=== PATIENT | male | born 1955 | race Caucasian/White ===

== ENCOUNTER 2017-10-24 02:11 | Inpatient (IN) | payer MEDICAID ==
[2017-10-18 14:16] LABS: PLATELET COUNT, AUTOMATED 361 K/uL (150-450)
--- NOTE | 2017-10-18 15:00 | EKG ---
[place] [facility] [place] NAME: ROSEMARY MONTE : [id number] MR: [id number] V: [id number] EXAM DATE: ORDERING PHYSICIAN: АНДРЕЙ BRASWELL TECHNOLOGIST: JOSUE Ayala Reason : PREOP Blood Pressure : / mmHG Vent. Rate : 079 BPM Atrial Rate : 079 BPM P-R Int : 142 ms QRS Dur : 082 ms QT Int : 372 ms P-R-T Axes : 079 066 073 degrees QTc Int : 426 ms Normal sinus rhythm Normal ECG When compared with ECG of 02-FEB-2017 07:42, Relatively unchanged Confirmed by SANJAY HERNANDEZ ([id number]) on 10/19/2017 10:10:47 PM Referred By: FRENCH Confirmed By:SANJAY HERNANDEZ
--- NOTE | 2017-10-18 15:10 | RADIOLOGY IMAGING REPORT ---
FACILITY: [facility] PATIENT NAME: Zachery Smith : 1955 MR: [id number] V: [id number] EXAM DATE: ORDERING PHYSICIAN: АНДРЕЙ BRASWELL TECHNOLOGIST: Location: [facility] Patient: Zachery Smith : 1955 Visit/Account:[id number] Date of Sevice: 10/18/2017 CHEST PA AND LAT Indication: Asthma Comparison: Chest x-ray 02/02/2017 Findings: Lungs: Linear scar is seen left lung base. Lungs are otherwise clear. Mediastinum/pulmonary vasculature: Heart size and pulmonary vasculature are normal. Bones/soft tissues: Old fractures are seen posterior left sixth, seventh, and eighth rib. IMPRESSION: 1. Stable scar left lung base. 2. Otherwise clear lungs. Report Dictated By: Chito Ruiz at 10/18/2017 3:01 PM Report E-Signed By: Chito Ruiz at 10/18/2017 3:07 PM WSN:[email or web address]
--- NOTE | 2017-10-21 04:03 | LEVENE H&P ---
DATE OF ADMISSION: October 24, 2017 IDENTIFICATION/CHIEF COMPLAINT The patient is a 61-year-old gentleman with a chief complaint of left hip pain. 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 He has had successful right hip replacement. Left hip replacement is indicated at this time to relieve pain and improve function. PAST MEDICAL HISTORY Notable for history of alcohol abuse, reactive airway disease. PAST SURGICAL HISTORY Notable for the contralateral hip replacement as well as back operation, removal of kidney stones, bladder operation. ALLERGIES CODEINE, which cause itching and GI upset, PENICILLIN, which had a severe reaction as a child, and ASPIRIN, which causes GI upset but no drug allergy. CURRENT MEDICATIONS 1. Oxycodone. 2. Gabapentin 300 t.i.d. 3. Xanax 1 mg p.o. t.i.d. 4. Pantoprazole 40 mg b.i.d. p.o. 5. Losartan 50 mg p.o. daily. 6. Flexeril 10 mg p.o. t.i.d. 7. Albuterol nebulizer p.r.n. 8. Spiriva inhaler once a day. 9. He uses nighttime oxygen. FAMILY HISTORY Notable for multiple relatives with cancer. SOCIAL HISTORY Notable for smoking a pack a day for 50+ years, currently down to half a pack a day. Drinks alcohol about three times a day, but denies abuse or withdrawal symptoms. REVIEW OF SYSTEMS Noncontributory. PHYSICAL EXAMINATION GENERAL: This is a well-developed, well-nourished male who appears stated age. HEENT: Normocephalic, atraumatic. NECK: Supple. LUNGS: Clear. HEART: Regular. ABDOMEN: Soft. ORTHOPEDIC EXAMINATION: The left hip is exquisitely painful. It limits rotation. He lacks about 10 degrees internal rotation versus contralateral. He is short about a centimeter to a centimeter and a half. Skin is intact. Neurovascular function is intact. Calves nontender. RADIOGRAPHIC DATA Radiographs demonstrate endstage AVN with collapse and arthritis. ASSESSMENT Left hip end-stage degenerative joint disease secondary to avascular necrosis, refractory to conservative care. PLAN Per patient request, will proceed with total hip arthroplasty. The nature of the procedure, the risks, benefits, the anticipated rehab course were reviewed. Risks include but are not limited to , major medical or anesthetic complication, infection, neurovascular injury, blood transfusion, stiffness, scarring, fracture, tendon rupture, instability, leg length discrepancy, implant loosening, migration or failure, need for additional surgery and other unforeseen. He understands and wishes to proceed. A signed permit is placed in the chart. No guarantees are given or implied. MARIIA
[2017-10-23 15:59] LABS: INR 1.03
[2017-10-24] VITALS (17 sets, daily range): BP systolic 95–132; BP diastolic 58–87; BMI 25.8
[~2017-10-24] VITALS: Ht 180.3 cm; Wt 83.9 kg
[~2017-10-24 02:11] MED LIST: ALB18R INH; ALBL INH; ALBU2.5V36 INH; ALPR-434 PO; AMLO-99 PO; ASPI-816 PO; ATOR20TA22 PO; AZIT-1 PO; BAC PO; BUDE10.2 INH; BUDE10.25 IH; CELE-1 PO; CIP500 PO; CLOP75TA43 PO; CYC10 PO; CYCL-343; CYCL10TA29 PO; DIA5 PO; DOC100 PO; DOCU-416 PO; FAM20 PO; FAMO20TA28 PO; FLUT1DIS28 IH; GABA-549 PO; HYDR-4309 PO; IBUP800T37 PO; LEVO-85 PO; LEVO750T44 PO; LISI-362 PO; LOR5/325 PO; LOSA50TA72 PO; MEP50 PO; METH1TAB65 PO; METH4TAB66 PO; METO25TA23; METO25TA23 PO; MORP-1 PO; MULT1CAP59 PO; OXYC-823 PO; OXYC-865 PO; OXYC-869 PO; OXYC-870 PO; OXYC10TA67; OXYC10TA67 PO; OXYGEN; OXYGENHOME INH; PANT40TA65; PANT40TA65 PO; PHEN200T32 PO; PHENA200 PO; PRED-1 PO; PRED20TA6 PO; TAMS0.4C25 PO; TAMS0.4C70 PO; TIO18R INH; VARE1TAB4 PO
[2017-10-24] MEDS ORDERED: FAMOTIDINE 20 MG TAB PO ONE (06:45)
[2017-10-24] MEDS ORDERED: LIDOCAINE/SOD BICARB 8.4% SYR ID ONE (07:45)
[2017-10-24] MEDS ORDERED: MIDAZOLAM 2 MG/2 ML VIAL IVP PRN (07:45)
[2017-10-24] MEDS ORDERED: NORMOSOL R SOLN(*) 1000 ML BAG 1,000 ML IV PRN (07:45)
[2017-10-24] MEDS ORDERED: TRANEXAMIC AC 1000 MG/10ML SDV 1,000 MG in DEXTROSE 5% 50 ML BAG 50 ML IV ONE (07:45)
[2017-10-24] MEDS ORDERED: cloNIDine EPIDUR INJ 100MCG/ML 40 MCG, ROPIVACAINE 0.5% 20 ML VIAL 25 ML, EPINEPHrine H... INJ ONE (07:45)
[2017-10-24] MEDS ORDERED: CLINDAMYCIN(*) 900 MG/NS 50 ML 50 ML IVPB ONE (07:45)
[2017-10-24] MEDS ORDERED: MORPHINE PF 5 MG/10 ML AMP ONE (08:22)
[2017-10-24] MEDS ORDERED: fentaNYL CITR 100 MCG/2 ML AMP ONE (08:23)
[2017-10-24] MEDS ORDERED: PROPOFOL EMUL(*) 10MG/ML 20 ML 20 ML ONE (08:24)
[2017-10-24] MEDS ORDERED: LIDOCAINE 2% IV 100 MG/5ML SYR ONE (08:24)
[2017-10-24] MEDS ORDERED: DEXAMETHASONE SOD 4 MG/ML VIAL ONE (08:56)
[2017-10-24] MEDS ORDERED: ONDANSETRON 4 MG/2 ML VIAL ONE (08:57)
[2017-10-24] MEDS ORDERED: MAGNESIUM HYDROXIDE* 30ML UDCP PO PRN (11:05)
[2017-10-24] MEDS ORDERED: ZOLPIDEM TARTRATE 5 MG TAB PO PRN (11:05)
[2017-10-24] MEDS ORDERED: diphenhydrAMINE 25 MG CAP PO PRN (11:05)
[2017-10-24] MEDS ORDERED: BENZOCAINE/MENTHOL 1 EACH LOZG PO PRN (11:05)
[2017-10-24] MEDS ORDERED: ACETAMINOPHEN 325 MG TAB PO PRN (11:05)
[2017-10-24] MEDS ORDERED: DIAZEPAM 5 MG TAB PO PRN (11:05)
[2017-10-24] MEDS ORDERED: FLUSH 10 ML SYR IVP PRN (11:05)
[2017-10-24] MEDS ORDERED: BISACODYL 10 MG SUPP PR PRN (11:05)
[2017-10-24] MEDS ORDERED: PROMETHAZINE 25 MG/ML 1 ML AMP IVP PRN (11:05)
[2017-10-24] MEDS ORDERED: diphenhydrAMINE 50 MG/ML VIAL IVP PRN (11:05)
[2017-10-24] MEDS ORDERED: SCOPOLAMINE 1.5 MG PATCH TD PRN (11:10)
[2017-10-24] MEDS ORDERED: NALBUPHINE HCL 10 MG/ML AMP IVP PRN (11:10)
[2017-10-24] MEDS ORDERED: ONDANSETRON 4 MG/2 ML VIAL IVP PRN (11:10)
[2017-10-24] MEDS ORDERED: LIDOCAINE/SOD BICARB 8.4% SYR SC ONE (11:40)
[2017-10-24] MEDS: APAP/HYDROCODONE 325/7.5 TAB PO PRN ×2 (12:43→19:55)
--- NOTE | 2017-10-24 14:30 | RADIOLOGY IMAGING REPORT ---
FACILITY: [facility] [place] PATIENT NAME: Zachery Smith : 1955 MR: [id number] V: [id number] EXAM DATE: ORDERING PHYSICIAN: АНДРЕЙ BRASWELL TECHNOLOGIST: [place] [facility] [place]y [place] : 1955 Visit/Account:[id number] Date of Sevice: 10/24/2017 Exam type: PELVIS History: POST OP PLACEMENT, left total hip arthroplasty Comparison: March 28, 2017. Findings: There is a right hip arthroplasty that was present on the prior study. There is a new left hip arthr oplasty that appears in good anatomic alignment on this AP view. Soft tissue gas and skin milad pr oject adjacent to this postoperative hip IMPRESSION: 1. As above Report Dictated By: Cesia Sidhu MD at 10/24/2017 2:24 PM Report E-Signed By: Cesia Sidhu MD at 10/24/2017 2:25 PM WSN:[email or web address]
--- NOTE | 2017-10-24 15:34 | LEVENE THA ---
EVENT DATE: October 24, 2017 SURGEON: Austin Silveira MD ANESTHESIOLOGIST: Pawan Freeman MD ANESTHESIA: General plus spinal SPECIAL SERVICE REPRESENTATIVE: JOIE Lisa PREOPERATIVE DIAGNOSIS Left hip avascular necrosis, secondary degenerative joint disease. POSTOPERATIVE DIAGNOSIS Left hip avascular necrosis, secondary degenerative joint disease. PROCEDURE PERFORMED Left total hip arthroplasty. ESTIMATED BLOOD LOSS 200 mL. DRAINS None. SPECIMENS None. COMPLICATIONS No apparent. IMPLANTS Angel system with a Secur-Fit max 132 size 12 stem, a Trident PSL HS cluster acetabular shell size 54, a Trident X3 0 degree eccentric liner to accommodate 36 mm head and a Biolox Delta ceramic C taper femoral head, 36 mm +5 neck length. INDICATIONS The patient has had bilateral hip AVN and DJD. His other hip has been replaced successfully. He has persistent pain and desires to have his left hip fixed. DESCRIPTION OF PROCEDURE The patient was taken to the operating room and placed supine on the operating table. General anesthesia was induced after spinal block was administered by the anesthesiologist. Antibiotics and TXA were administered IV. The patient was positioned in the right lateral decubitus position on a well-padded hawkins bag , his pelvis secured in a vertical position. All bony prominences and superficial nerves were well padded. The left hip girdle and lower extremity were prepped and draped in the usual sterile fashion for hip arthroplasty. small incision, posterolateral approach was made, carried down through the skin and subcu to the deep fascia. Fascia was incised over the tip of the trochanter , extended distally in line with the femur and proximally in line with the gloria fibers. The maximum fibers were split bluntly. Trochanteric bursa was excised. The interval between the abductor and external rotator was identified , abductor mechanism protected with a blunt Hohmann. An L capsulotomy/ tenotomy was performed, releasing the external rotators and the capsule off the back of the femur, starting with the horizontal limb just above the pyriformis. Capsule and external rotators were tagged for lateral anatomic reattachment. The femoral head was dislocated. End-stage arthritic change was noted. A 1.5 cm neck cut was made, consistent with preoperative templating. Femoral head was extracted. Femur was translocated anteriorly, periacetabular retractor placed with the tips down on bone. The labrum and pulvinar are excised. medialization of the true medial wall of the acetabulum was performed with a 44 mm reamer. This was expanded in 2 mm increments up to 54, where good rim contact was obtained. A 55 was used to open the throat of the acetabulum. The 54 had nice line to line fit on trialing. The actual shell was then impacted in approximately 40 degrees of lateral opening and 15 degrees of anteversion using the transverse acetabular ligament, internal bony landmarks and extracorporeal guide to guide socket placement. Rock solid fixation was achieved. No adjuvant fixation was felt to be necessary. The actual liner was inserted. The offset liner was used to match contralateral side. Attention was turned to femoral preparation. Superior neck was resected with a cookie- cutter. A Fermín awl finds the canal. Tapered reaming was performed p to 12 , where good endosteal contact was obtained. Broaching started at 10 and worked up to 12. Good fit and fill are obtained with the size 12 broach, which was stable. Trial reductions were performed, brought this good sikh of limb lengths. Stability was achievable with this stem. Broach was extracted. Surfaces were copiously lavaged. The actual stem was impacted into position, seats at the same height. The +5 neck length was selected for optimal sikh of soft tissue tension and stability and limb length. The Valderrama taper was lavaged and dried, and the actual Biolox head was impacted onto the Valderrama taper. Joint was reduced. Surfaces were copiously lavaged. Pain cocktail was infiltrated throughout the wound. A small drill bit was used to placed 2 drill holes posteriorly in the trochanter to anatomically reattach the external rotators in the posterior capsule. Deep fascia was closed with #2 Ethibond distally, #2 Vicryl proximally. Subcu was lavaged. Hemostasis was assured. Dermis was closed with 3-0 Vicryl, skin with surgical milad. Xeroform was applied followed by a sterile dressing and compression wrap. The patient was rolled supine and an abduction pillow was placed. He was awakened from anesthesia and taken to recovery room in stable condition, having tolerated the procedure well. The plan is for a standard [facility] rehab protocol. [facility] HOSPITALDebby
[2017-10-24] MEDS: NORMOSOL R SOLN(*) 1000 ML BAG 1,000 ML IV PRN (16:16)
[2017-10-24] MEDS: CLINDAMYCIN(*) 900 MG/NS 50 ML 50 ML IVPB SCH (16:18)
[2017-10-24] MEDS: CELECOXIB 200 MG CAP PO SCH (16:18)
[2017-10-24] MEDS: ASPIRIN 81 MG CHEW CHEW SCH (16:18)
[2017-10-24] MEDS ORDERED: ALBUTEROL 2.5 MG/3 ML NEB NEB PRN (23:15)
[2017-10-24] MEDS ORDERED: ALPRAZolam 1 MG TAB PO PRN (23:15)
--- NOTE | 2017-10-24 23:25 | Hospitalist Progress Note ---
Subjective Progress Notes Subjective No cp/sob. No concerns from staff. 150cc of EBL. 1600cc of crystalloid, TXA, ephedrine and dexamethasone given intra-op. Physical Exam Vital Signs Date Time Temp Pulse Resp B/P (MAP) Pulse Ox O2 Delivery O2 Flow Rate FiO2 10/24/17 20:02 100 Nasal Cannula 2.0 10/24/17 19:35 97.5 16 10/24/17 17:04 77 110/74 (86) Intake and Output 10/25/17 07:00 Intake Total 2620 ml Output Total 750 ml Balance 1870 ml Intake Oral 670 ml IV Total 1950 ml Output Urine Total 600 ml Estimated Blood Loss 150 ml General Appearance: Alert, Awake, No Acute Distress Cardiovascular: Regular Rate and Rhythm Respiratory: Clear to Auscultation Extremities: No Edema Assessment and Plan Problems: (1) Status post hip replacement Status: Acute Assessment & Plan: No CV/pulmonary issues. The patient denies any h/o DVT/PE. The patient to be on ASA 81mg a twice for blood clot prevention for 30 days after surgery, per Dr. Silveira's orders. The patient get itchy with full dose ASA and use 81mg for his previous hip surgery blood clot prevention. (2) Anxiety, generalized Status: Chronic Assessment & Plan: Continue Xanax prn. (3) GERD (gastroesophageal reflux disease) Status: Chronic Assessment & Plan: Continue Protonix. (4) Chronic pain Status: Chronic Assessment & Plan: He is on oxycodone chronically. Will defer to Dr. Silveira about pain management post-op. Continue prn Flexeril. (5) HTN (hypertension) Status: Chronic Assessment & Plan: Continue Toprol and Losartan with parameters. BMP daily. (6) COPD (chronic obstructive pulmonary disease) Status: Chronic Assessment & Plan: He continues to smoke 1/2ppd. He doesn't want any replacement while in the hospital. His lungs are clear. Continue Spiriva and will use Albuterol prn. Exam Sepsis Risk: No Definite Risk Problem Qualifiers (1) Status post hip replacement: Laterality: left Qualified Codes: Z96.642 - Presence of left artificial hip joint SANJAY HERNANDEZ MD Oct 24, 2017 23:25
[2017-10-25] VITALS (14 sets, daily range): BP systolic 81–109; BP diastolic 49–72; Ht 180.3 cm; Wt 83.9 kg
[2017-10-25] MEDS: CLINDAMYCIN(*) 900 MG/NS 50 ML 50 ML IVPB SCH ×2 (00:19→08:19)
[2017-10-25] MEDS: APAP/HYDROCODONE 325/7.5 TAB PO PRN ×2 (00:37→05:06)
[2017-10-25] MEDS: TIOTROPIUM BROM INH 18 MCG/CAP INH SCH (05:55)
--- NOTE | 2017-10-25 07:53 | Hospitalist Progress Note ---
Subjective Progress Notes Subjective Main issue is urinary retention. Required cath twice so far and feels like he may need cath again. Pain control is also not adequate. He takes oxycodone 10 -20 mg po every four hours at home and says the lortabs do not work at all. Physical Exam Vital Signs Date Time Temp Pulse Resp B/P (MAP) Pulse Ox O2 Delivery O2 Flow Rate FiO2 10/25/17 06:55 97.4 77 16 94/63 (73) 98 Nasal Cannula 10/25/17 05:05 2.0 General Appearance: Alert, Awake, No Acute Distress, Afebrile, Other Cardiovascular: Regular Rate and Rhythm Respiratory: Clear to Auscultation Integumentary: Other (No evidence for TP.) Psych: Alert & Oriented X3, Appropriate Mood & Affect Result Diagram: 10/25/17 0621 Assessment and Plan Problems: (1) Status post hip replacement Status: Acute Assessment & Plan: No CV/pulmonary issues. The patient denies any h/o DVT/PE. The patient to be on ASA 81mg a twice for blood clot prevention for 30 days after surgery, per Dr. Silveira's orders. The patient get itchy with full dose ASA and use 81mg for his previous hip surgery blood clot prevention. Pain control is not good so will switch to oxycodone 10-20 mg po q 4 hours prn and stop lortabs. (2) Urinary retention Status: Acute Assessment & Plan: Will recath this morning if unable to void. Consider flomax if not able to void after next cath and additional phys therapy. (3) Anxiety, generalized Status: Chronic Assessment & Plan: Continue Xanax prn. (4) GERD (gastroesophageal reflux disease) Status: Chronic Assessment & Plan: Continue Protonix. (5) Chronic pain Status: Resolved Assessment & Plan: He is on oxycodone chronically. Continue prn Flexeril. (6) HTN (hypertension) Status: Chronic Assessment & Plan: Continue Toprol and Losartan with parameters. BMP daily. (7) COPD (chronic obstructive pulmonary disease) Status: Chronic Assessment & Plan: He continues to smoke 1/2ppd. He doesn't want any replacement while in the hospital. His lungs are clear. Continue Spiriva and will use Albuterol prn. Time Spent on Plan of Care: < 30 min Exam Sepsis Risk: No Definite Risk Problem Qualifiers (1) Status post hip replacement: Laterality: left Qualified Codes: Z96.642 - Presence of left artificial hip joint MECHE TOBIN MD FACP Oct 25, 2017 07:53
[2017-10-25] MEDS: LOSARTAN POTASSIUM 50 MG TAB PO SCH (08:19)
[2017-10-25] MEDS: METOPROLOL SUCC XL 50 MG TABCR 50 MG TAB.ER.24H PO SCH (08:19)
[2017-10-25] MEDS: PANTOPRAZOLE SOD 40 MG TABEC PO SCH (08:19)
[2017-10-25] MEDS: CELECOXIB 200 MG CAP PO SCH ×2 (08:19→16:18)
[2017-10-25] MEDS: ASPIRIN 81 MG CHEW CHEW SCH ×2 (08:19→16:18)
[2017-10-25] MEDS: NORMOSOL R SOLN(*) 1000 ML BAG 1,000 ML IV PRN (12:48)
[2017-10-26 03:11] VITALS: BP 107/67
[2017-10-26] MEDS: CYCLOBENZAPRINE HCL 10 MG TAB PO PRN (03:11)
[2017-10-26] MEDS: NORMOSOL R SOLN(*) 1000 ML BAG 1,000 ML IV PRN (03:11)
[2017-10-26] MEDS: TIOTROPIUM BROM INH 18 MCG/CAP INH SCH (05:51)
[2017-10-26 07:16] VITALS: BP 101/57
--- NOTE | 2017-10-26 07:50 | Hospitalist Progress Note ---
Subjective Progress Notes Subjective Says his pain is not well controlled. He prefers to not go home due to the pain. Also not doing well with PT--- barely puts any weight on the left hip. Physical Exam Vital Signs Date Time Temp Pulse Resp B/P (MAP) Pulse Ox O2 Delivery O2 Flow Rate FiO2 10/26/17 07:21 90 Nasal Cannula 2.0 10/26/17 07:16 99.4 83 16 101/57 (72) Intake and Output 10/27/17 07:00 # Voids 1 General Appearance: Alert, Awake, No Acute Distress, Afebrile Cardiovascular: Regular Rate and Rhythm Respiratory: Clear to Auscultation Integumentary: Other (Tender over the left hip incision but no redness, drainage. No evidence for VTE.) Psych: Alert & Oriented X3, Appropriate Mood & Affect Result Diagram: 10/26/17 0537 Assessment and Plan Problems: (1) Status post hip replacement Status: Acute Assessment & Plan: The patient to be on ASA 81mg a twice for blood clot prevention for 30 days after surgery, per Dr. Silveira's orders. The patient get itchy with full dose ASA and use 81mg for his previous hip surgery blood clot prevention. Pain control is not good on oxycodone 10-20 mg po q 4 hours prn but he is not asking for pain meds on regular schedule. He declines going home today and says he will go tomorrow. Will need much better performance with PT before home as well. (2) Urinary retention Status: Acute Assessment & Plan: 14 cc residual urine this morning after voiding. This problem seems to be resolved. Will stop flomax since he had only one dose. (3) Anxiety, generalized Status: Chronic Assessment & Plan: Continue Xanax prn. (4) GERD (gastroesophageal reflux disease) Status: Chronic Assessment & Plan: Continue Protonix. (5) Chronic pain Status: Resolved Assessment & Plan: He is on oxycodone chronically. Continue prn Flexeril. (6) HTN (hypertension) Status: Chronic Assessment & Plan: Continue Toprol and Losartan with parameters. BMP daily. (7) COPD (chronic obstructive pulmonary disease) Status: Chronic Assessment & Plan: He continues to smoke 1/2ppd. He doesn't want any replacement while in the hospital. His lungs are clear. Continue Spiriva and will use Albuterol prn. Time Spent on Plan of Care: < 30 min Exam Sepsis Risk: No Definite Risk Problem Qualifiers (1) Status post hip replacement: Laterality: left Qualified Codes: Z96.642 - Presence of left artificial hip joint MECHE TOBIN MD FACP Oct 26, 2017 07:50
[2017-10-26] MEDS: PANTOPRAZOLE SOD 40 MG TABEC PO SCH (08:21)
[2017-10-26] MEDS: CELECOXIB 200 MG CAP PO SCH ×2 (08:21→16:16)
[2017-10-26] MEDS: METOPROLOL SUCC XL 50 MG TABCR 50 MG TAB.ER.24H PO SCH (08:22)
[2017-10-26] MEDS: ASPIRIN 81 MG CHEW CHEW SCH ×2 (08:22→16:16)
[2017-10-26] MEDS: LOSARTAN POTASSIUM 50 MG TAB PO SCH (08:22)
[2017-10-26] MEDS ORDERED: OXYC-373 PO (08:32)
[2017-10-26] MEDS: oxyCODONE HCL 5 MG CAP PO PRN ×3 (08:52→19:57)
[2017-10-26 11:17] VITALS: BP 105/51
[2017-10-26 15:00] VITALS: BP 93/51
[2017-10-26 18:59] VITALS: BP 103/54
[2017-10-26 23:54] VITALS: BP 108/65
[2017-10-27 02:37] VITALS: BP_SYST 108; BP_SYST 134; BP_DIAS 65; BP_DIAS 70
[2017-10-27] MEDS: oxyCODONE HCL 5 MG CAP PO PRN (02:39)
[2017-10-27] MEDS: TIOTROPIUM BROM INH 18 MCG/CAP INH SCH (05:20)
[2017-10-27] MEDS ORDERED: METO50TA19 PO (06:53)
[2017-10-27] MEDS ORDERED: ASPI-816 CHEW (06:53)
--- NOTE | 2017-10-27 06:55 | Hospitalist Progress Note ---
Subjective Progress Notes Subjective No cp/sob. No concerns from patient or staff. Physical Exam Vital Signs Date Time Temp Pulse Resp B/P (MAP) Pulse Ox O2 Delivery O2 Flow Rate FiO2 10/27/17 05:20 93 Nasal Cannula 2.0 10/27/17 05:20 87 14 10/27/17 02:37 98.2 134/70 (91) General Appearance: Alert, Awake, No Acute Distress Result Diagram: 10/27/17 0550 Assessment and Plan Problems: (1) Status post hip replacement Status: Acute Assessment & Plan: The patient is to be on ASA 81mg a twice for blood clot prevention for 30 days after surgery, per Dr. Silveira's orders. The patient gets itchy with full dose ASA and used 81mg for his previous hip surgery blood clot prevention. (2) Urinary retention Status: Resolved Assessment & Plan: This problem seems to be resolved. Flomax stopped since he had only one dose. (3) Anxiety, generalized Status: Chronic Assessment & Plan: Continue Xanax prn. (4) GERD (gastroesophageal reflux disease) Status: Chronic Assessment & Plan: Continue Protonix. (5) Chronic pain Status: Resolved Assessment & Plan: He is on oxycodone chronically. Continue prn Flexeril. (6) HTN (hypertension) Status: Chronic Assessment & Plan: Continue Toprol and Losartan with parameters. (7) COPD (chronic obstructive pulmonary disease) Status: Chronic Assessment & Plan: He is chronically on O2 and is at his baseline. He continues to smoke 1/2ppd. He didn't want any replacement while in the hospital. His lungs are clear. Continue Spiriva. Exam Sepsis Risk: No Definite Risk Problem Qualifiers (1) Status post hip replacement: Laterality: left Qualified Codes: Z96.642 - Presence of left artificial hip joint SANJAY HERNANDEZ MD Oct 27, 2017 06:55
[2017-10-27 07:25] VITALS: BP 102/60
[2017-10-27] MEDS: METOPROLOL SUCC XL 50 MG TABCR 50 MG TAB.ER.24H PO SCH (08:18)
[2017-10-27] MEDS: ASPIRIN 81 MG CHEW CHEW SCH (08:18)
[2017-10-27] MEDS: PANTOPRAZOLE SOD 40 MG TABEC PO SCH (08:18)
[2017-10-27] MEDS: CELECOXIB 200 MG CAP PO SCH (08:18)
[2017-10-27] MEDS: LOSARTAN POTASSIUM 50 MG TAB PO SCH (08:18)
[2017-10-27] MEDS: CYCLOBENZAPRINE HCL 10 MG TAB PO PRN (10:07)
== END 2017-10-27 10:15 | disposition home health service (06) | DRG 470 ==
LOC: OR 02:11 → MED 12:30
PROVIDERS: ADMIT Orthopaedic Surgery; ATTEND Orthopaedic Surgery
PROC: 0SRB03Z Replacement of Left Hip Joint with Ceramic Synthetic Substitute, Open Approach (ICD-10-PCS; principal; 2017-10-24 08:29)
DX: M16.7 Other unilateral secondary osteoarthritis of hip (principal); M87.9 Osteonecrosis, unspecified; I10 Essential (primary) hypertension; F41.1 Generalized anxiety disorder; G89.29 Other chronic pain; J44.9 Chronic obstructive pulmonary disease, unspecified; K21.9 Gastro-esophageal reflux disease without esophagitis; F17.210 Nicotine dependence, cigarettes, uncomplicated; R33.9 Retention of urine, unspecified; Z88.0 Allergy status to penicillin; Z96.641 Presence of right artificial hip joint; Z88.8 Allergy status to other drugs, medicaments and biological substances; Z85.51 Personal history of malignant neoplasm of bladder; Z86.73 Personal history of transient ischemic attack (TIA), and cerebral infarction without residual deficits; Z99.81 Dependence on supplemental oxygen; Z92.3 Personal history of irradiation
CPT/HCPCS: 36415; 71020; 72170; 81001; 82040; 82247; 82310; 82374; 82435; 82565; 82947; 84075; 84132; 84155; 84295; 84450; 84460; 84520; 85025; 85610; 86850; 86900; 86901; 93005; 94640; 97161; 97165; C1776; J0171; J0735; J1100; J1885; J2001; J2250; J2270; J2300; J2405; J2704; J2795; J3010; J3490; J3535; J7050; J7060

== ENCOUNTER 2018-09-20 14:10 | Outpatient (RCR) | payer MEDICAID ==
[2017-10-25 12:19] VITALS: BMI 25.8
[~2018-09-20 14:10] MED LIST changes: -ALBL INH; +ALBU2SYR19 INH; +AMLO-113 PO; -AMLO-99 PO; -ASPI-816 PO; +ASPI-870 CHEW; +ASPI-870 PO; -HYDR-4309 PO; +HYDR-653 PO; -LOSA50TA72 PO; +LOSA50TA74 PO; +METO50TA19 PO; +OXYC-373 PO
== END 2018-09-21 15:47 | disposition home or self-care (01) ==
LOC: RAON 14:10
PROVIDERS: ATTEND Radiology Radiation Oncology
DX: C61 Malignant neoplasm of prostate (principal); C67.9 Malignant neoplasm of bladder, unspecified; M79.606 Pain in leg, unspecified; R29.898 Other symptoms and signs involving the musculoskeletal system; R10.30 Lower abdominal pain, unspecified

== ENCOUNTER 2018-09-28 07:15 | Outpatient (RCR) | payer MEDICAID ==
[2017-10-25 12:19] VITALS: BMI 25.8
[~2018-09-28 07:15] MED LIST changes: -AMLO-113 PO; +AMLO-127 PO; -LOSA50TA74 PO; +LOSA50TA80 PO
[2018-09-28 15:36] LABS: PLATELET COUNT, AUTOMATED 267 K/uL (150-450)
--- NOTE | 2018-10-01 13:00 | ONCOLOGY FOLLOW UP NOTE ---
EVENT DATE: September 28, 2018 CHIEF COMPLAINT Followup for prostate and bladder carcinoma. HISTORY OF PRESENT ILLNESS Patient is a 62-year-old male who is seen today in followup. He was last seen in our office on January 24, 2017. He was treated for prostate cancer, completing radiation on October 03, 2013. He was also diagnosed with a superficial high- grade bladder carcinoma in 2010. He was treated with local excision and intravesical BCG. He presents today and has noted occasional hematuria. He describes painful erections for the past two to three months. His urine smells strong and he is concerned about recurrence of either prostate or bladder carcinoma. He is no longer following up with Dr. Mccarty and is choosing not to see Dr. Rowland, urology. He has ongoing chronic neuropathic pain and is working to get into pain management. ONCOLOGY HISTORY Diagnosed with Marianne 3+3=6 invasive adenocarcinoma of the right lobe of the prostate on October 05, 2012. Pre-biopsy PSA was 5.2. He completed radiation to the prostate with a dose of 72 Gy on October 03 2013 (stage T1c). Also with a history of superficial high-grade bladder carcinoma, treated with local excision and intravesical BCG, diagnosed in December 2010. PAST MEDICAL HISTORY 1. Superficial high-grade bladder carcinoma, December 2010. 2. Stage T1c prostate cancer, September 2012. 3. GERD. 4. Hypertension. 5. Chronic pain with bilateral leg neuropathy. PAST SURGICAL HISTORY 1. Prostate biopsy, September 2012. 2. Excision of bladder carcinoma, December 2010. 3. Bilateral hip replacements, 2017 and 2018. 4. L4-5 bilateral laminectomies, 2017. FAMILY HISTORY Negative for malignancy. SOCIAL HISTORY Patient is single. He has two grown children. He is disabled from his neuropathy. He continues to smoke cigarettes. PHYSICAL EXAM VITAL SIGNS: Recorded in chart. GENERAL: Patient is a well-developed, well-nourished male in no acute distress. HEAD: Normocephalic, atraumatic. EYES: Sclerae anicteric. MOUTH: Moist mucous membranes. NECK: Supple. No palpable adenopathy. LUNGS: Diminished bilaterally but clear. CARDIOVASCULAR: Heart rate regular, 76 per minute without murmur, S3 or S4. EXTREMITIES: No edema. NEUROLOGIC: Nonfocal. LAB CBC today reveals a WBC of 6.7, hemoglobin 15.8, hematocrit 46.6, platelets 267,000. CMP, PSA and UA are pending. IMPRESSION AND PLAN The patient is a 62-year-old male who is seen today in followup. He has a history of stage T1c prostate cancer and completed radiation on October 03, 2013. He also has a history of superficial high-grade bladder carcinoma, treated in 2010. He presents for followup. 1. Prostate cancer. Patient is concerned about recurrence. PSA is pending. He will be seen in followup next week to review labs. 2. Bladder carcinoma. Patient has noted occasional hematuria with strong smelling urine. Urinalysis is pending. As above, he will be seen next week for followup. 3. Chronic pain. This is due to bilateral leg neuropathy. He is trying to get into pain management at this time. 4. Follow up in one week to review labs and further treatment planning. [facility]
[2018-10-04 14:35] VITALS: BP 150/85
--- NOTE | 2018-10-04 23:45 | ONCOLOGY FOLLOW UP NOTE ---
EVENT DATE: October 04, 2018 CHIEF COMPLAINT Followup for prostate and bladder carcinoma. HISTORY OF PRESENT ILLNESS Patient is a 62-year-old male who was seen today in followup. He was seen last week on 09/28/18, but prior to that had not been seen in our office since 01/24/17. He was treated for prostate cancer, completing radiation on 10/03/13. He was also diagnosed with a superficial high-grade bladder carcinoma in 2010, treated with local excision and intravesical BCG. When seen last week, he had noted occasional hematuria. He also described painful erections for the past two to three months. He felt his urine smelled strong, and he was concerned about the recurrence of either prostate or bladder carcinoma. He has ongoing chronic neuropathic pain, but does not have a pain management appointment for approximately four weeks. ONCOLOGY HISTORY Diagnosed with Blanca 3+3=6 invasive adenocarcinoma of the right lobe of the prostate on October 05, 2012. Pre-biopsy PSA was 5.2. He completed radiation to the prostate with a dose of 72 Gy on October 03 2013 (stage T1c). Also with a history of superficial high-grade bladder carcinoma, treated with local excision and intravesical BCG, diagnosed in December 2010. PAST MEDICAL HISTORY 1. Superficial high-grade bladder carcinoma, December 2010. 2. Stage T1c prostate cancer, September 2012. 3. GERD. 4. Hypertension. 5. Chronic pain with bilateral leg neuropathy. PAST SURGICAL HISTORY 1. Prostate biopsy, September 2012. 2. Excision of bladder carcinoma, December 2010. 3. Bilateral hip replacements, 2017 and 2018. 4. L4-5 bilateral laminectomies, 2017. FAMILY HISTORY Negative for malignancy. SOCIAL HISTORY Patient is single. He has two grown children. He is disabled from his neuropathy. He continues to smoke cigarettes. REVIEW OF SYSTEMS A 12-point review of systems was performed and is negative except as stated above. PHYSICAL EXAMINATION VITAL SIGNS: Blood pressure 150/85, pulse 84, respirations 16, temperature 99, O2 saturation 93%. GENERAL: Patient is a well-developed, well-nourished male in no acute distress. HEAD: Normocephalic, atraumatic. EYES: Sclerae anicteric. MOUTH: Moist mucous membranes. NECK: Supple. No palpable adenopathy. LUNGS: Diminished bilaterally but clear. CARDIOVASCULAR: Heart rate regular, 84 per minute. EXTREMITIES: No edema. NEUROLOGIC: Nonfocal. LABORATORY No lab today. IMPRESSION AND PLAN The patient is a 62-year-old male who is seen today in followup. He has a history of stage T1c prostate cancer and completed radiation on October 03, 2013. He also has a history of superficial high-grade bladder carcinoma, treated in 2010. He presents for followup. 1. Prostate cancer. Patient was concerned about recurrence. However, PSA on 09/28/18 was 0.53. Baseline PSA at diagnosis was 4.12. In December 2016 it was 1.27. Patient is pleased with this result. 2. Bladder carcinoma. Patient was concerned about recurrence of bladder cancer. Urinalysis was completely negative, with no evidence of infection or blood. As he continues to describe symptoms, I recommended he be seen by Urology. Dr. Mccarty is no longer seeing patients, and Zachery chooses not to see Dr. Rowland. I have given him the name of the [facility] in [place]. 3. Chronic pain with bilateral leg neuropathy. He has worked hard to get into pain management. He states he has an appointment in four weeks. 4. Follow up in one year for continued care. CBC, CMP, PSA, and urinalysis will be done at that time. MARIIA
== END 2018-10-24 14:13 | disposition home or self-care (01) ==
LOC: RAON 07:15
PROVIDERS: ATTEND Radiology Radiation Oncology
DX: C61 Malignant neoplasm of prostate (principal); C67.9 Malignant neoplasm of bladder, unspecified; G62.9 Polyneuropathy, unspecified; Z92.3 Personal history of irradiation; Z96.643 Presence of artificial hip joint, bilateral
CPT/HCPCS: 81001; 84153; 85025; G0463; 82040; 82247; 82310; 82374; 82435; 82565; 82947; 84075; 84132; 84155; 84295; 84450; 84460; 84520; 99212

== ENCOUNTER → 2019-03-26 | Outpatient (CLI) | payer MEDICAID ==
[2017-10-25 12:19] VITALS: BMI 25.8
== END ==
LOC: LAB 08:04
PROVIDERS: ATTEND Urology
DX: Z01.812 Encounter for preprocedural laboratory examination (principal)
CPT/HCPCS: 36415; 82565

== ENCOUNTER → 2019-03-26 | Outpatient (CLI) | payer MEDICAID ==
[2017-10-25 12:19] VITALS: BMI 25.8
[~2019-03-26] MED LIST changes: +IOPAMIDOL 76% 100 ML INFUS BTL 100 ML ONE
--- NOTE | 2019-03-26 11:59 | RADIOLOGY IMAGING REPORT ---
FAC[place] [facility] [place] NAME: Zachery Smith : 1955 MR: [id number] V: [id number] EXAM DATE: ORDERING PHYSICIAN: KRISTA HAYES TECHNOLOGIST: Location: [facility] - [place] Patient: Zachery Smith : 1955 Visit/Account:[id number] Date of Sevice: 03/26/2019 CT ABDOMEN PELVIS W & W/O CONTRAST HISTORY: urine retention, bladder cancer, lower abdominal pain TECHNIQUE: Axial images acquired through the abdomen/pelvis both with and without IV contrast.. Clement nal and sagittal reformatting also performed.Dose Lowering Technique One of the following dose optimization techniques was utilized in the performance of this exam: Autom ated exposure control; adjustment of the mA and/or kV according to the patient's size; or use of an i terative reconstruction technique. Specific details can be referenced in the facility's radiology C T exam operational policy. CONTRAST: 75 mL Isovue-370 COMPARISON: January 23, 2017 FINDINGS: Visualized lung bases: There is increasing atelectasis in the inferior lingula. Hepatobiliary: Negative. Spleen: Negative. Adrenals: Mild adrenal thickening Pancreas: Negative. Kidneys ureters and bladder: Subcentimeter cortical hypodensity upper pole of the left kidney likely represents a cyst although is too small to characterize. The bladder is not well evaluated due to ex tensive streak artifacts from bilateral hip arthroplasties. . There is no evidence of hydronephrosi s or hydroureter Genitalia: Prostate gland not ideally seen due to artifacts from the hip arthroplasties although the re do appear to be some coarse calcifications GI: There is mild narrowing in the distal sigmoid colon which may simply be related to spasm. There is diverticulosis of the left side of the colon although no CT evidence of acute diverticulitis. Th e appendix is visualized and does not appear inflamed Vessels/spaces/nodes: Mild atherosclerotic changes of the abdominal aorta and branch vessels Bones/soft tissues: There bilateral hip arthroplasties. There are spondylotic changes of the thorac olumbar spine Additional findings: None pertinent. IMPRESSION: Increasing atelectasis in the inferior lingula Probable small left renal cyst The bladder is not well evaluated due to extensive streak artifacts from bilateral hip arthroplasties . There is no evidence of hydronephrosis or hydroureter. Mild narrowing of the distal sigmoid colon which may simply be related to spasm. Clinical correlatio n needed Diverticulosis of the left side of the colon Additional chronic findings as described Report Dictated By: Cesia Sidhu MD at 03/26/2019 10:51 AM Report E-Signed By: Cesia Sidhu MD at 03/26/2019 11:56 AM WSN:[id number]
== END ==
LOC: CT 01:02
PROVIDERS: ATTEND Urology
DX: J98.11 Atelectasis (principal); N28.1 Cyst of kidney, acquired; Z96.643 Presence of artificial hip joint, bilateral; K57.30 Diverticulosis of large intestine without perforation or abscess without bleeding
CPT/HCPCS: 74178; Q9967

== ENCOUNTER → 2019-04-05 | Outpatient (CLI) | payer MEDICAID ==
[2017-10-25 12:19] VITALS: BMI 25.8
[~2019-04-05] MED LIST changes: -IOPAMIDOL 76% 100 ML INFUS BTL 100 ML ONE
[2019-04-05 13:55] LABS: PLATELET COUNT, AUTOMATED 335 K/uL (150-450)
== END ==
LOC: LAB 13:41
PROVIDERS: ATTEND Urology
DX: Z01.812 Encounter for preprocedural laboratory examination (principal); Z01.810 Encounter for preprocedural cardiovascular examination
CPT/HCPCS: 36415; 82310; 82374; 82435; 82565; 82947; 84132; 84295; 84520; 85025; 93005

== ENCOUNTER 2019-04-08 01:32 | Observation (INO) | payer MEDICAID ==
--- NOTE | 2019-04-05 13:55 | EKG ---
FACILITY: [facility] - [place] PATIENT NAME: ROSEMARY MONTE : [id number] MR: [id number] V: [id number] EXAM DATE: ORDERING PHYSICIAN: BOO CORDON TECHNOLOGIST: Test Reason : Blood Pressure : / mmHG Vent. Rate : 074 BPM Atrial Rate : 074 BPM P-R Int : 130 ms QRS Dur : 086 ms QT Int : 378 ms P-R-T Axes : 044 017 041 degrees QTc Int : 419 ms Sinus rhythm No acute appearing findings Confirmed by JULISA LACKEY ([id number]) on 04/05/2019 4:54:06 PM Referred By: Confirmed By:JULISA LACKEY
[~2019-04-08] VITALS: Ht 180.3 cm; Wt 91.6 kg
[2019-04-08] VITALS (17 sets, daily range): BP systolic 93–134; BP diastolic 53–89
[2019-04-08] MEDS: FAMOTIDINE 20 MG TAB PO ONE ×2 (07:47→08:01)
[2019-04-08] MEDS ORDERED: ONDANSETRON 4 MG/2 ML VIAL ONE (08:00)
[2019-04-08] MEDS ORDERED: LIDOCAINE MPF 1% 5 ML VIAL ONE (08:00)
[2019-04-08] MEDS ORDERED: PROPOFOL EMUL(*) 10MG/ML 20 ML 20 ML ONE (08:00)
[2019-04-08] MEDS ORDERED: DEXAMETHASONE SOD 4 MG/ML VIAL ONE (08:00)
[2019-04-08] MEDS ORDERED: fentaNYL CITR 100 MCG/2 ML AMP ONE ×3 (08:01→11:04)
[2019-04-08] MEDS ORDERED: NORMOSOL R SOLN(*) 1000 ML BAG 1,000 ML IV PRN (08:05)
[2019-04-08] MEDS ORDERED: MIDAZOLAM 2 MG/2 ML VIAL IVP PRN (08:05)
[2019-04-08] MEDS ORDERED: LIDOCAINE/SOD BICARB 8.4% SYR ID ONE (08:05)
[2019-04-08] MEDS ORDERED: LEVOFLOXACIN/D5W*500 MG/100 ML 100 ML IVPB ONE (08:25)
[2019-04-08] MEDS ORDERED: BELLADONNA ALK/OPIUM 60MG SUPP PR ONE (09:51)
[2019-04-08] MEDS ORDERED: ONDANSETRON 4 MG/2 ML VIAL IVP PRN (10:15)
[2019-04-08] MEDS: KCL/D1/2NS 20 MEQ 1000 ML 1,000 ML IV SCH ×2 (12:12→22:10)
[2019-04-08] MEDS: KETOROLAC 30 MG/ML VIAL IVP SCH ×2 (12:12→17:44)
[2019-04-08] MEDS: CYCLOBENZAPRINE HCL 10 MG TAB PO SCH ×2 (13:32→20:37)
[2019-04-08] MEDS: HYDROmorphone HCL 2 MG/ML SDV IVP PRN ×2 (13:33→20:37)
--- NOTE | 2019-04-08 17:20 | OPERATIVE REPORT 1 ---
EVENT DATE: April 08, 2019 SURGEON: Chandana Mac MD ANESTHESIOLOGIST: Kam Alcazar MD ANESTHESIA: General. NATIONAL EXPANSION RECRUITER: None. PREOPERATIVE DIAGNOSIS History of bladder and prostate cancer. POSTOPERATIVE DIAGNOSIS History of bladder and prostate cancer. PROCEDURE PERFORMED Cystoscopy with barbotage cytology and evacuation of bladder calculi. DESCRIPTION OF PROCEDURE The patient was brought to the operating room, and after the adequate induction of general anesthesia, he was placed in the relaxed dorsal lithotomy position. Genitalia were scrubbed, prepped, and draped in a sterile fashion, and then the bladder examined with the rigid cystoscope. The anterior urethra was normal, and the prostatic urethra appeared to have evidence of prior resection. There was hyperemia of the prostatic urethra consistent with the patient's prior radiation therapy. At the level of the bladder neck from approximately the 3 o'clock to the 8 o'clock position was a line of dystrophic calcification right at the juncture of the prostate and the bladder. I was able to dislodge these with the beak of the cystoscope and with the cold cup biopsy forceps. They were dislodged into the bladder and then irrigated free using the Ellik evacuator and sent for stone analysis. Examination of the bladder mucosa under white light and narrow band imaging demonstrated no obvious mucosal abnormalities. A Viera catheter was passed into the bladder, and a belladonna and opium suppository was administered. He was aroused from anesthesia and then transported to the PACU in stable condition. [facility] CENTERDebby
[2019-04-08] MEDS: DOCUSATE SODIUM 100 MG CAP PO SCH (20:37)
[2019-04-08] MEDS: FAMOTIDINE 20 MG TAB PO SCH (20:37)
[2019-04-09] MEDS: KETOROLAC 30 MG/ML VIAL IVP SCH ×2 (00:21→06:08)
[2019-04-09 03:15] VITALS: BP 134/91
[2019-04-09] MEDS: HYDROmorphone HCL 2 MG/ML SDV IVP PRN (03:34)
[2019-04-09 07:31] VITALS: BP 142/84
[2019-04-09] MEDS: FAMOTIDINE 20 MG TAB PO SCH (08:22)
[2019-04-09] MEDS: CYCLOBENZAPRINE HCL 10 MG TAB PO SCH (08:22)
[2019-04-09] MEDS: DOCUSATE SODIUM 100 MG CAP PO SCH (08:22)
--- NOTE | 2019-04-09 08:22 | Urology Progress Note ---
Subjective Patient Complains of: Neurological: No: Syncope, Confusion, Weakness, Dizziness, Slurred Speech, Other Genitourinary: Other (urinary urgency) Physical Exam Vital Signs Date Time Temp Pulse Resp B/P (MAP) Pulse Ox O2 Delivery O2 Flow Rate FiO2 04/09/19 07:31 97.8 75 16 142/84 (103) 90 Nasal Cannula 04/09/19 03:15 2.5 Intake and Output 04/09/19 07:01 Intake Total 1950 ml Output Total 2200 ml Balance -250 ml Intake Oral 1100 ml IV Total 850 ml Output Urine Total 2200 ml # Voids 1 General Appearance: Alert, Awake, No Acute Distress GI: Soft and Non-Tender : Normal, No CVA Tenderness Assessment and Plan Problems: (1) Bladder calculi Status: Resolved (2) Prostate cancer Status: Chronic Condition He's feeling well this morning. His Viera catheter was removed and he has void ed. He has urgency and I cautioned him that this will continue for another 10-14 days. I think he can be discharged I would like to see him back in my office in one month. We will call him to make an appointment. Exam Sepsis Risk: No Definite Risk KRISTA HAYES MD Apr 09, 2019 08:22
--- NOTE | 2019-04-09 08:23 | Urology Discharge Summary ---
Discharge Summary Reason for Hosp/Final Diag: (1) Bladder calculi Status: Resolved (2) Prostate cancer Status: Chronic Departure Weight (Pounds): 202 Condition: Improved Discharge: Home Discharge Instructions Home Meds Reported Medications Cyclobenzaprine Hcl (CYCLOBENZAPRINE HCL) 10 Mg Tablet, 10 MG PO TID 05/16/17 Oxygen (OXYGEN) Inha, 4 L INH HS, L 03/21/17 Losartan Potassium (LOSARTAN POTASSIUM) 50 Mg Tablet, 100 MG PO QDAY 07/13/16 Multivitamin (MULTIVITAMINS) 1 Each Capsule, 1 EACH PO QDAY, CAPSULE 07/13/16 Pantoprazole Sodium (PANTOPRAZOLE SODIUM) 40 Mg Tablet.dr, 40 MG PO DAILY, TAB.SR 11/06/14 Diet: Regular Activity: As Tolerated Venous Thromboembolism Antithrombotics Is Pt On Any Antithrombotics?: No Prophylaxis Tx Contraindicated Pharmacological Contraindicati: Surgical Contraindication KRISTA HAYES MD Apr 09, 2019 08:23
[2019-04-09 09:00] VITALS: Ht 180.3 cm; Wt 91.6 kg
[2019-04-09] MEDS ORDERED: LOSARTAN POTASSIUM 50 MG TAB PO SCH (09:00)
[2019-04-09] MEDS ORDERED: PANTOPRAZOLE SOD 40 MG TABEC PO SCH (09:00)
== END 2019-04-09 08:11 | disposition home or self-care (01) ==
LOC: OR 01:32 → INTOOBSV 11:45 → MED 11:45 → OBSVTOIN 11:45
PROVIDERS: ADMIT Urology; ATTEND Urology
DX: R35.0 Frequency of micturition (principal); R39.15 Urgency of urination
CPT/HCPCS: 52310; 82365; 88108; 88300; A4338; G0378; J1100; J1170; J1885; J1956; J2001; J2405; J2704; J3010; J3480